=== PATIENT | female | born 1980 | race Caucasian/White ===

== ENCOUNTER → 2016-12-16 11:59 | Day surgery (SDC) | payer BC ==
[~2016-12-16 11:59] MED LIST: Atracurium* 10 MG/ML 10 ML VIAL ONE; Buffered Lidocaine 1% SYR 3ML* 3 ML/SYR SYRINGE INTRADERM ONE; Bupivacaine 0.25% EPI 200,000* 30 ML SDV ONE; Dexamethasone IV* 4 MG/ML 1 ML (4 MG) IV SLOW PU ONE; Dexamethasone IV* 4 MG/ML 1 ML (4 MG) ONE; DiMENhydriNATE IV* 50 MG/ML VIAL IV PUSH PRN; Famotidine IV* 10 MG/ML 2 ML (20 mg) IV ONE; Famotidine IV* 10 MG/ML 2 ML (20 mg) ONE; HYDROmorphone INJ* 1 MG/ML CARPUJECT SYRINGE IV PRN; Ketorolac INJ* 30 MG/ML 1 ML VIAL ONE; Lidocaine 2% PF * 5 ML VIAL ONE; Midazolam* 1 MG/ML 5 ML VIAL (5 MG) ONE; Ondansetron INJ* 2 MG/ML VIAL IV PRN; Ondansetron INJ* 2 MG/ML VIAL ONE; Propofol* 10 MG/ML 20 ML BTL IV PUSH ONE; Scopolamine 1.5 mg* PATCH TRANSDERM PRN; Scopolamine PATCH Remove* 1 NOTE MISC PATCH OFF ONE; ceFAZolin 2 GM PREMIX (*) 2 GM/50 ML BAG IVPB ONE; fentaNYL* 50 MCG/ML 2 ML VIAL (100 MCG VIAL) IV PRN; fentaNYL* 50 MCG/ML 5 ML VIAL (250 MCG VIAL) ONE; oxyCODONE/Acetamin 5/325 MG* TAB PO PRN
[2016-12-16 13:13] LABS: Manual Entry Verification HAN0055; UR Preg Internal Control QC Line Present
--- NOTE | 2016-12-16 15:59 | SURGPN ---
Brief Operative Note - Surgery Procedures: Pre-OP Diagnoses: chronic cholecystitis Post-op Diagnosis: same Procedure: Laparoscopic cholecystectomy Surgeon: Hailey Asst: Neela Anethesia: ZARINA Hernandez EBL: minimal IVF: 1600cc LR Specimen: gallbladder Drains: none
--- NOTE | 2016-12-16 16:16 | PN ---
Progress Note - Progress Note Note: Istop checked Reference #: [id number]
[2016-12-16 17:04] VITALS: BP 126/76
--- NOTE | 2016-12-17 13:07 | OP ---
DATE OF OPERATION: 12/16/16 - [facility] DATE OF : 84 SURGEON: Donis Hart MD LOSS PREVENTION OPERATIONS MANAGER: AMBROSIO Graf ANESTHESIOLOGIST: Dr. Nicola Hernandez. ANESTHESIA: General. PRE-OP DIAGNOSIS: Chronic cholecystitis. POST-OP DIAGNOSIS: Chronic cholecystitis. OPERATIVE PROCEDURE: Laparoscopic cholecystectomy. ESTIMATED BLOOD LOSS: Minimal. FLUIDS: 1600 cc of crystalloid fluid given. SPECIMEN: Gallbladder. DRAINS: None. COUNTS: Lap pad count and instrument count correct at the end of the procedure. DESCRIPTION OF PROCEDURE: The patient was identified in the preoperative area, marked, brought to the operating room, placed on the operating table in supine position. Preoperative antibiotics were given. Sequential devices were placed on bilateral lower extremities. General anesthesia was induced. The patient's abdomen was prepped and draped in the standard surgical fashion and a time-out was performed. The folds of the umbilicus were elevated anteriorly. A Veress needle was inserted into the abdominal cavity, which was then allowed to be insufflated to a pressure of 15 mmHg. The patient tolerated the insufflation well. An incision was made over this. A Veress needle and a 5 mm trocar was inserted into the abdominal cavity. Laparoscope was inserted through this after the Veress needle was removed, there was no evidence of injury from the trocar insertion. Additional trocars were then placed in the following position; a 12 mm in the subxiphoid area and two 5 mm along the right costal margin. The gallbladder was identified and showed no significant edema or adhesions. The fundus was identified, grasped, and elevated above the liver. The infundibulum was grasped and retracted towards the right lower quadrant, which exposed the critical view, where the common bile duct and cystic duct met. Peritoneal attachments were taken off the medial aspect of the gallbladder with a cautery and off the lateral aspect. The cystic duct and cystic artery were isolated. They were both doubly clipped and ligated and the gallbladder was removed from the liver bed. At one point, we did make a small hole in the gallbladder. We were able to grasp this and prevent any significant bile leak. No stones were leaked either. Gallbladder was then placed in an endoscopic retrieval bag and brought out through the subxiphoid port site and passed off as a specimen. Review of the abdomen showed no other injuries. The cystic duct stump and cystic artery stump were intact with no evidence of bleeding or bile leak. We did irrigate out the gallbladder fossa, suctioning off any spilled bile. We did this over the liver as well until the fluid was clear and suctioned off and allowed the abdomen to collapse. Trocars removed under direct vision. The umbilical incision site was reapproximated with 3-0 chromic in a simple fashion. In addition, the other 3 skin incisions were reapproximated with 4-0 Monocryl subcuticular sutures. Steri-Strips and sterile dressing were applied. The patient tolerated the procedure well, was woken up in the OR and transferred to the PACU in stable condition. CC: Dr. Av Pyle; [facility] * [id number]/[facility] #: [id number] BRANT
== END | disposition home or self-care (01) ==
LOC: OR 11:59
PROVIDERS: ATTEND Surgery
DX: K80.10 Calculus of gallbladder with chronic cholecystitis without obstruction (principal)
CPT/HCPCS: 81025; 88304; J0690; J1100; J1885; J2250; J2405; J2704; J3010

== ENCOUNTER 2016-12-20 11:36 | Observation (INO) | payer BC ==
[2016-12-20] MEDS ORDERED: Morphine INJ* 4 MG/ML 1 ML CARPUJECT IV ONE ×2 (13:00→13:47)
[2016-12-20] MEDS ORDERED: Ondansetron INJ* 2 MG/ML VIAL IV ONE (13:01)
[2016-12-20] MEDS ORDERED: NS 0.9% 1000 ML* 1,000 ML IV ONE (13:21)
[2016-12-20 13:27] LABS: Hematocrit 42 % (35-47); Hemoglobin 14.2 g/dl (12.0-16.0); Mean Corpuscular HGB Conc 34 g/dl (31-36); Mean Corpuscular Hemoglobin 31 pg (27-31); Mean Corpuscular Volume 93 fL (80-97); Mean Platelet Volume 9 um3 (7.4-10.4); Red Blood Count 4.53 10^6/ul (4.0-5.4); Red Cell Distribution Width 13 % (10.5-15); White Blood Count 5.9 10^3/ul (3.5-10.8)
[2016-12-20 13:38] LABS: Albumin 4.2 g/dL (3.2-5.2); C Reactive Protein 8.45 mg/L (< 5.00); Calcium 9.5 mg/dL (8.6-10.3); EGFR African American 181.6 (>60); EGFR Non-African American 141.2 (>60); Globulin 3.2 g/dL (2-4); Potassium 3.8 mmol/L (3.5-5.0); Total Bilirubin 6.1 mg/dL (0.2-1.0); Total Protein 7.4 g/dL (6.4-8.9)
--- NOTE | 2016-12-20 14:15 | RAD ---
HISTORY: Abdominal pain, status post cholecystectomy COMPARISONS: None VIEWS:1: Single frontal portable view of the chest at 1:30 PM FINDINGS: LINES AND TUBES: None. CARDIOMEDIASTINAL SILHOUETTE: The cardiomediastinal silhouette is normal for portable technique. PLEURA: The costophrenic angles are sharp. No pleural abnormalities are noted. LUNG PARENCHYMA: The lungs are clear. ABDOMEN: The upper abdomen is clear. There is no subphrenic gas. BONES AND SOFT TISSUES: No bone or soft tissue abnormalities are noted. IMPRESSION: NO ACTIVE CARDIOPULMONARY DISEASE.
[2016-12-20] MEDS ORDERED: Iohexol 350* (CONTRAST) 500 ML MDV IV ONE (14:21)
--- NOTE | 2016-12-20 15:27 | RAD ---
HISTORY: Shortness of breath, upper abdominal pain, status post cholecystectomy COMPARISONS: None TECHNIQUE: Multiple contiguous axial CT scans were obtained of the chest, abdomen, and pelvis after the administration of intravenous contrast. Coronal and sagittal multiplanar reformations are submitted for review.. Oral contrast was administered. Delayed images were obtained through the abdomen FINDINGS: CHEST NECK AND THYROID: The lower neck and thyroid are unremarkable. CHEST WALL: There is no lower cervical, axillary, or supraclavicular lymphadenopathy by size criteria. HEART AND PERICARDIUM: The heart is unremarkable. AORTA AND PULMONARY VASCULATURE: The aorta and pulmonary vasculature are normal. MEDIASTINUM: There is no mediastinal lymphadenopathy by size criteria. ABDI: There is no hilar lymphadenopathy by size criteria. AIRWAY AND ESOPHAGUS: The airway is unremarkable, without endobronchial filling defect. The esophagus is grossly normal. LUNG PARENCHYMA: There is subsegmental atelectasis of the lung bases bilaterally PLEURA: No pleural abnormalities are noted. BONES AND SOFT TISSUES: No bone or soft tissue abnormalities are noted. ABDOMEN/PELVIS: LIVER: The liver is normal in shape, size, contour, and attenuation. BILE DUCTS: There is no intrahepatic or extrahepatic biliary dilatation. GALLBLADDER: The gallbladder is not visualized. Surgical clips are noted in the gallbladder fossa. PANCREAS: The pancreas is normal, without mass or ductal dilatation. SPLEEN: Normal in size and appearance. UPPER GI TRACT: Evaluation of the gastrointestinal tract is limited by incomplete gastric distention. The upper GI tract is unremarkable. SMALL BOWEL \T\ MESENTERY: The small bowel is normal in contour, course, and caliber. There is no obstruction or dilatation. COLON: The colon is normal in contour, course, caliber. There is no pericolonic inflammatory change. ADRENALS: Normal bilaterally. KIDNEYS: The kidneys are normal in shape, size, contour, and axis. There is no hydronephrosis or nephrolithiasis. BLADDER: The bladder is smooth in contour. PELVIC ORGANS: The uterus and adnexa are grossly normal for technique. AORTA: The aorta is normal. IVC: Unremarkable LYMPH NODES: There is no lymphadenopathy by size criteria. ABDOMINAL WALL: There is small fat-containing of umbilical hernia. There is mild inflammatory change along the right flank in the subcutaneous soft tissue. BONES: Mild degenerative changes are noted OTHER: None IMPRESSION: 1. NO PULMONARY ARTERIAL FILLING DEFECT TO SUGGEST PULMONARY EMBOLUS. 2. STATUS POST CHOLECYSTECTOMY. 3. MILD INFLAMMATORY CHANGE OF THE RIGHT FLANK, LIKELY POSTSURGICAL IN NATURE. 4. SUBSEGMENTAL ATELECTASIS OF THE LUNG BASES BILATERALLY
[2016-12-20 16:25] LABS: Urine Bacteria 1+ (Absent); Urine Bilirubin Negative (Negative); Urine Glucose Negative (Negative); Urine Nitrite Negative (Negative)
[2016-12-20] MEDS ORDERED: Acetaminophen TAB* 325 MG PO PRN (16:54)
[2016-12-20] MEDS ORDERED: HYDROmorphone INJ* 1 MG/ML CARPUJECT SYRINGE IV ONE (16:59)
[2016-12-20] MEDS ORDERED: NS 0.9% 1000 ML* 1,000 ML IV SCH (17:00)
--- NOTE | 2016-12-20 17:28 | ED ---
Dean Tapia Janilya, scribed for Luis A Adan MD on 12/20/16 at 1347 . Shortness of Breath - HPI Summary HPI Summary: A 36 y/o female came in to [facility] presenting w/ a gradual onset of constant SOB starting after her gallbladder surgery on Friday, December 16, 2016. Pt states that she had a scheduled surgery with Dr. Hart to remove gallstones. She was stable enough to leave home the same day of her surgery. However, she started feeling SOB and nausea when standing up. It has progressively worsened, and now she has SOB at rest. In addition, pt states there is CP under rib cage, rating 9/10. It is worse with movement. There is also epigastric abd pain due to surgery. There is no drainage. Pt denies wheezing, coughing, fever, chills, pedal edema. She's been urinating normally, and she hasn't had bowel movement since surgery. Pt is on Percocet pain medication. No PMHx of asthma. - History of Current Complaint Chief Complaint: EDShortnessOfBreath Time Seen by Provider: 12/20/16 13:32 Hx Obtained From: Patient Onset/Duration: Gradual Onset, Lasting Days, Still Present Timing: Constant Current Severity: Moderate Dyspnea At: Rest Aggrevating Factors: Nothing Alleviating Factors: Nothing - Allergy/Home Medications Allergies/Adverse Reactions: Allergies Allergy/AdvReac Type Severity Reaction Status Date / Time Ketoconazole Allergy Severe rash and Verified 12/16/16 13:24 itchy PMH/Surg Hx/FS Hx/Imm Hx Musculoskeletal History: Reports: Hx Tendonitis - right hand Sensory History: Denies: Hx Contacts or Glasses, Hx Hearing Aid Opthamlomology History: Denies: Hx Contacts or Glasses - Cancer History Hx Chemotherapy: No - Surgical History Surgery Procedure, Year, and Place: sinus surgery 1999 approx Hx Anesthesia Reactions: No Infectious Disease History: No Infectious Disease History: Denies: Traveled Outside the [place] in Last 30 Days - Family History Known Family History: Positive: Cardiac Disease, Diabetes Negative: Hypertension - Social History Alcohol Use: Rare Substance Use Type: Reports: None Smoking Status (MU): Never Smoked Tobacco Review of Systems Negative: Fever, Chills Positive: Chest Pain - under rib cage Positive: Shortness Of Breath, Other - denies wheezing . Negative: Cough Positive: Abdominal Pain - epigastric abd pain due to recent surgery , Nausea Positive: other - no bowel movement since surgery, normal urination Negative: Edema Skin: Negative Neurological: Negative Psychological: Normal All Other Systems Reviewed And Are Negative: Yes Physical Exam Triage Information Reviewed: Yes Vital Signs On Initial Exam: Initial Vitals Temp Pulse Resp BP Pulse Ox 97.4 F 96 20 136/78 98 12/20/16 11:38 12/20/16 11:38 12/20/16 11:38 12/20/16 11:38 12/20/16 11:38 Vital Signs Reviewed: Yes Appearance: Positive: No Pain Distress, Ill-Appearing - mildly Skin: Positive: Warm, Skin Color Reflects Adequate Perfusion, Dry Head/Face: Positive: Normal Head/Face Inspection Eyes: Positive: EOMI, LISANDRA ENT: Positive: Normal ENT inspection Neck: Positive: Supple, Nontender Respiratory/Lung Sounds: Positive: Clear to Auscultation, Breath Sounds Present Cardiovascular: Positive: RRR Abdomen Description: Positive: Other: - Tender in upper abd. Negative: Nontender, Soft Bowel Sounds: Positive: Present, Hypoactive Musculoskeletal: Positive: Normal, Strength/ROM Intact Neurological: Positive: Normal, Sensory/Motor Intact, Alert, Oriented to Person Place, Time Psychiatric: Positive: Affect/Mood Appropriate Diagnostics - Vital Signs Vital Signs Temp Pulse Resp BP Pulse Ox 12/20/16 13:10 16 12/20/16 11:38 97.4 F 96 20 136/78 98 - Laboratory Lab Results: Lab Results 12/20/16 12/20/16 12/20/16 Range/Units 12:20 12:20 12:20 WBC 5.9 (3.5-10.8) 10^3/ul RBC 4.53 (4.0-5.4) 10^6/ul Hgb 14.2 (12.0-16.0) g/dl Hct 42 (35-47) % MCV 93 (80-97) fL MCH 31 (27-31) pg MCHC 34 (31-36) g/dl RDW 13 (10.5-15) % Plt Count 287 (150-450) 10^3/ul MPV 9 (7.4-10.4) um3 Neut % (Auto) 80.0 (38-83) % Lymph % (Auto) 11.5 L (25-47) % [place] % (Auto) 5.5 (1-9) % Eos % (Auto) 2.1 (0-6) % Baso % (Auto) 0.9 (0-2) % Absolute Neuts (auto) 4.8 (1.5-7.7) 10^3/ul Absolute Lymphs (auto) 0.7 L (1.0-4.8) 10^3/ul Absolute Monos (auto) 0.3 (0-0.8) 10^3/ul Absolute Eos (auto) 0.1 (0-0.6) 10^3/ul Absolute Basos (auto) 0.1 (0-0.2) 10^3/ul Absolute Nucleated RBC 0 10^3/ul Nucleated RBC % 0 INR (Anticoag Therapy) 1.19 H (0.89-1.11) APTT 27.5 (26.0-36.3) seconds Sodium 135 (133-145) mmol/L Potassium 3.8 (3.5-5.0) mmol/L Chloride 105 (101-111) mmol/L Carbon Dioxide 25 (22-32) mmol/L Anion Gap 5 (2-11) mmol/L BUN 7 (6-24) mg/dL Creatinine 0.50 L (0.51-0.95) mg/dL Est GFR ( Amer) 181.6 (>60) Est GFR (Non-Af Amer) 141.2 (>60) BUN/Creatinine Ratio 14.0 (8-20) Glucose 102 H (70-100) mg/dL Lactic Acid (0.5-2.0) mmol/L Calcium 9.5 (8.6-10.3) mg/dL Total Bilirubin 6.10 H (0.2-1.0) mg/dL AST Pending ALT Pending Alkaline Phosphatase 184 H (34-104) U/L C-Reactive Protein 8.45 H (< 5.00) mg/L Total Protein 7.4 (6.4-8.9) g/dL Albumin 4.2 (3.2-5.2) g/dL Globulin 3.2 (2-4) g/dL Albumin/Globulin Ratio 1.3 (1-3) Lipase Pending 12/20/16 Range/Units 12:20 WBC (3.5-10.8) 10^3/ul RBC (4.0-5.4) 10^6/ul Hgb (12.0-16.0) g/dl Hct (35-47) % MCV (80-97) fL MCH (27-31) pg MCHC (31-36) g/dl RDW (10.5-15) % Plt Count (150-450) 10^3/ul MPV (7.4-10.4) um3 Neut % (Auto) (38-83) % Lymph % (Auto) (25-47) % [place] % (Auto) (1-9) % Eos % (Auto) (0-6) % Baso % (Auto) (0-2) % Absolute Neuts (auto) (1.5-7.7) 10^3/ul Absolute Lymphs (auto) (1.0-4.8) 10^3/ul Absolute Monos (auto) (0-0.8) 10^3/ul Absolute Eos (auto) (0-0.6) 10^3/ul Absolute Basos (auto) (0-0.2) 10^3/ul Absolute Nucleated RBC 10^3/ul Nucleated RBC % INR (Anticoag Therapy) (0.89-1.11) APTT (26.0-36.3) seconds Sodium (133-145) mmol/L Potassium (3.5-5.0) mmol/L Chloride (101-111) mmol/L Carbon Dioxide (22-32) mmol/L Anion Gap (2-11) mmol/L BUN (6-24) mg/dL Creatinine (0.51-0.95) mg/dL Est GFR ( Amer) (>60) Est GFR (Non-Af Amer) (>60) BUN/Creatinine Ratio (8-20) Glucose (70-100) mg/dL Lactic Acid 1.3 (0.5-2.0) mmol/L Calcium (8.6-10.3) mg/dL Total Bilirubin (0.2-1.0) mg/dL AST ALT Alkaline Phosphatase (34-104) U/L C-Reactive Protein (< 5.00) mg/L Total Protein (6.4-8.9) g/dL Albumin (3.2-5.2) g/dL Globulin (2-4) g/dL Albumin/Globulin Ratio (1-3) Lipase Result Diagrams: 12/20/16 12:20 12/20/16 12:20 Lab Statement: Any lab studies that have been ordered have been reviewed, and results considered in the medical decision making process. - Radiology CXR Xray Interpretation: No Acute Changes - IMPRESSION: No active cardiopulmonary disease Radiology Interpretation Completed By: Radiologist - CT chest/abd/pel CT Interpretation: Positive (See Comments) - IMPRESSION: 1. NO PULMONARY ARTERIAL FILLING DEFECT TO SUGGEST PULMONARY EMBOLUS. 2. STATUS POST CHOLECYSTECTOMY. 3. MILD INFLAMMATORY CHANGE OF THE RIGHT FLANK, LIKELY POSTSURGICAL IN NATURE. 4. SUBSEGMENTAL ATELECTASIS OF THE LUNG BASES BILATERALLY CT Interpretation Completed By: Radiologist - EKG 1145 Cardiac Rate: NL - 79 bpm EKG Rhythm: Sinus Rhythm ST Segment: Normal Ectopy: None Course/Dx - Course Assessment/Plan: DISCUSSED RESULTS WITH PATIENT/FAMILY. DISCUSSED WITH DR PAGAN. ADMIT SURGERY STABLE. - Diagnoses Provider Diagnoses: Pancreatitis, Abdominal pain, Dyspnea - Physician Notifications Discussed Care of Patient With: Dr. Pagan (surgery) at 1651: discussed diagnosis of pancreatitis and hospital admission. Discharge - Discharge Plan Condition: Stable Disposition: ADMITTED TO [facility] Referrals: Av Pyle MD [Primary Care Provider] - The documentation as recorded by the Dean murcia Janilya accurately reflects the service I personally performed and the decisions made by me, Luis A Adan MD.
[2016-12-20] MEDS: Heparin VIAL(*) 5000 UNITS/ML VIAL (FIVE THOUSAND) SUBCUT SCH (21:44)
--- NOTE | 2016-12-21 00:18 | HP ---
HISTORY AND PHYSICAL ADMISSION: DATE OF ADMISSION: 12/20/16 The patient was admitted to the emergency room, but I saw her here on her short - stay surgical bed admission floor. REASON FOR ADMISSION: Nausea, abdominal pain, and slight shortness of breath. HISTORY OF PRESENT ILLNESS: Ms. Amrita Donis is a very pleasant 36-year-old woman, who underwent an elective laparoscopic cholecystectomies as an outpatient last Wednesday with Dr. Donis Hart. This was done for symptomatic cholelithiasis. An ultrasound preoperatively had showed gallstones without ductal dilation or acute chronic inflammation. Blood work preoperatively done at Dr. Pyle's office was also unremarkable. She tolerated the procedure well and was discharged to home that same day and required only several days of narcotic analgesia. She says over the last 24 to 48 hours, however, she has developed some nausea and epigastric discomfort, sometimes radiating into her back. In addition, she had some slight shortness of breath and especially at rest. She had no fever, shakes, or chills. She had noted no jaundice; however, she does state her urine was darker. She has not had a bowel movement in several days. She has had no lower abdominal discomfort. She was keeping some liquids down yesterday. She called the Answering Service today with the above complaints. She was instructed to proceed to the emergency room, especially in light of her complaints of postoperative shortness of breath. In the emergency room, she was noted to have a temperature of 99.8 with stable vital signs with a heart rate of 70. Laboratory workup included a normal white blood cell count; however , she was noted to have a total bilirubin of 6.1, but AST and ALT of 1042 and 1479 respectively. Lipase was 4093. Lactic acid 1.3. She underwent a CT scan of the chest, abdomen, and pelvis. This was done with both IV and oral contrast. Chest CT showed no pulmonary arterial filling defect to suggest pulmonary embolus. The abdominal component showed findings of a status post cholecystectomy, but no fluid collection, abscess, extraluminal air, or ductal dilation. She is being admitted to the surgical service for care of what appears to be a retained common bile duct stone with pancreatitis. PAST MEDICAL HISTORY: Unremarkable. PAST SURGICAL HISTORY: 1. Laparoscopic cholecystectomy. 2. Sinus surgery. MEDICATIONS: None. ALLERGIES: KETOCONAZOLE. SOCIAL HISTORY: She is . She lives with her . She has 1 child. She works in the [employer]. She drinks alcoholic beverages rarely. She has never been a smoker. She denies drug abuse. REVIEW OF SYSTEMS: The patient has had no dizziness, visual disturbances, or headaches. Pulmonary: She described some shortness of breath, but no hemoptysis, wheezing, and no history of asthma. She has no cardiovascular disease or chest pain. GI: As per above. : There is no urgency or hematuria. PHYSICAL EXAMINATION GENERAL: She is a well-developed, well-nourished female, who has been in no apparent distress. VITAL SIGNS: Temperature 98.1, pulse 70, blood pressure 114/70, pulse oximetry 100% saturated on room air. HEENT: Sclerae were slightly icteric. Trachea was midline. Oral mucosa was somewhat dry. LUNGS: Clear to auscultation with normal respiratory effort. HEART: Regular rate and rhythm without murmurs, rubs, or gallops. ABDOMEN: Soft and nondistended. She has well-healed 4 laparoscopic upper abdominal incisions. There are no signs of infection or redness. She has some mild tenderness in the epigastric and right upper quadrant on deeper palpation. There is no peritoneal sign, irritation, or rigidity. EXTREMITIES: Showed no cyanosis or edema. PSYCHIATRIC: She is awake, alert, and oriented x3. She has normal judgment and insight. IMPRESSION: 1. A 36-year-old woman status post elective laparoscopic cholecystectomy last week, returns with a markedly elevated total bilirubin as well as liver transaminases and an elevated lipase consistent with a pancreatitis, most likely due to a retained common bile duct stone. It is impossible to tell whether this stone has passed. She shows no signs of cholangitis, sepsis, or peritonitis. 2. Otherwise, a healthy female. PLAN: 1. The patient will be admitted to the surgical service and kept n.p.o. 2. She will be aggressively hydrated. 3. We will repeat laboratory values in the morning including liver transaminases, total bilirubin as well as lipase to follow with the trend. 4. An MRCP will be ordered for morning to evaluate the common bile duct. 5. Depending on the trend and the blood work as well as findings on MRCP, Gastroenterology consultation may be required and consideration of ERCP given. 6. I discussed all of the above findings with the patient and her here at the bedside tonight and reviewed the plan of care with them in detail and answered their questions. In addition, a diagram of the biliary tract was used to describe the concepts discussed above. 7. We will not start antibiotics at this time. CC: [facility]; Siddharth Kraft * [id number]/[facility] #: [id number] [facility]
[2016-12-21] MEDS: HYDROmorphone INJ* 1 MG/ML CARPUJECT SYRINGE IV PRN ×3 (00:46→21:41)
[2016-12-21] MEDS: Heparin VIAL(*) 5000 UNITS/ML VIAL (FIVE THOUSAND) SUBCUT SCH ×3 (06:05→21:38)
[2016-12-21 07:35] LABS: Hematocrit 34 % (35-47); Hemoglobin 11.8 g/dl (12.0-16.0); Mean Corpuscular HGB Conc 35 g/dl (31-36); Mean Corpuscular Hemoglobin 32 pg (27-31); Mean Corpuscular Volume 93 fL (80-97); Mean Platelet Volume 8 um3 (7.4-10.4); Red Blood Count 3.67 10^6/ul (4.0-5.4); Red Cell Distribution Width 13 % (10.5-15); White Blood Count 6.2 10^3/ul (3.5-10.8)
[2016-12-21 07:51] LABS: Albumin 3.1 g/dL (3.2-5.2); BUN/Creatinine Ratio 15.2 (8-20); Calcium 8.5 mg/dL (8.6-10.3); EGFR Non-African American 155.5 (>60); Globulin 2.5 g/dL (2-4); Potassium 3.7 mmol/L (3.5-5.0); Total Bilirubin 3.1 mg/dL (0.2-1.0); Total Protein 5.6 g/dL (6.4-8.9)
--- NOTE | 2016-12-21 08:55 | PN ---
Progress Note - Progress Note Note: Surgery Progress: (DOS 12/21) S: POD #5. Feels better this a.m. Pain level 2/10. Has not req'd any analgesic since 99. Slight nausea, but also feels hungry. Urine still dark. O: Vital Signs - 8 hr 12/21/16 12/21/16 12/21/16 01:46 04:11 07:57 Temperature 97.8 F 98.0 F Pulse Rate 76 66 Respiratory 16 16 18 Rate Blood Pressure 109/65 105/62 (mmHg) O2 Sat by Pulse 99 99 Oximetry 12/21/16 08:00 Temperature Pulse Rate Respiratory 18 Rate Blood Pressure (mmHg) O2 Sat by Pulse Oximetry Intake and Output Last 24 Hours 12/19/16 12/20/16 12/21/16 12/22/16 06:59 06:59 06:59 06:59 Intake Total 1904 Output Total 800 0 Balance 1104 0 Weight 172 lb Intake: IV Fluids 1904 Oral 0 Output: Urine 800 0 Gen: WN, obese female in NAD; appears comfortable Heart: reg Lungs: clear ant; decreased BS at bases Abd: lap incisions ok; soft; mildly "uncomfortable" in midepigastrium; remainder soft, nontender Labs: Laboratory Tests 12/21/16 12/21/16 07:28 07:28 WBC 6.2 Hgb 11.8 L Total Bilirubin 3.10 H D AST 268 H ALT 771 H Lipase 144 H A: retained CBD stone, likely passed w/ sig improvement in clinical picture, including labs P: discussed w/ Dr. Hart: will cx MRCP; allow sips clears; cont IVF; repeat labs in a.m.
[2016-12-21] MEDS: Ketorolac INJ* 30 MG/ML 1 ML VIAL IV PRN ×2 (09:28→21:58)
[2016-12-21] MEDS: Ondansetron INJ* 2 MG/ML VIAL IV PRN ×2 (14:51→21:43)
[2016-12-22] MEDS: Heparin VIAL(*) 5000 UNITS/ML VIAL (FIVE THOUSAND) SUBCUT SCH ×2 (05:29→14:28)
[2016-12-22] MEDS: Ketorolac INJ* 30 MG/ML 1 ML VIAL IV PRN (05:30)
[2016-12-22 07:08] LABS: Albumin 3.1 g/dL (3.2-5.2); Direct Bilirubin 0.5 mg/dL (0.03-0.18); Globulin 2.3 g/dL (2-4); Indirect Bilirubin 1.4 mg/dL (0.3-1.0); Total Bilirubin 1.9 mg/dL (0.2-1.0); Total Protein 5.4 g/dL (6.4-8.9)
--- NOTE | 2016-12-22 09:20 | PN ---
Progress Note - Progress Note SOAP: Subjective: pt seen and examined. Feeling a little better. Pos abdo pain; last narcotic last night. post R shoulder pain Objective: [af vss abdo: soft/ ND, tender at RUQ w/o rebound labs noted Assessment: 1 week s/p lap ivy with likely retained CBD stone that passed; resolving pancreatitis Plan: advance diet d/c planning. f/uin office next week
[2016-12-22] MEDS: HYDROmorphone INJ* 1 MG/ML CARPUJECT SYRINGE IV PRN (10:58)
[2016-12-22] MEDS: Ondansetron INJ* 2 MG/ML VIAL IV PRN (11:02)
[2016-12-22] MEDS ORDERED: oxyCODONE/Acetamin 5/325 MG* TAB PO PRN (14:49)
[2016-12-22 15:31] VITALS: BP 127/71
--- NOTE | 2016-12-23 02:12 | DS ---
DISCHARGE SUMMARY: DATE OF ADMISSION: 12/20/16 DATE OF ANTICIPATED DISCHARGE: 12/22/16 ATTENDING PHYSICIAN: Donis Hart MD (dictated by AMBROSIO Galloway) HOSPITAL COURSE: Please refer to admission history and physical from Dr. Pagan from 12/20/16 for admission details. Briefly, the patient is a 36- year-old woman who had undergone a laparoscopic cholecystectomy on 12/16/16. Initial postoperative course was as expected. She then developed increased epigastric abdominal pain, associated with nausea and dark urine as well as some shortness of breath. Workup was consistent with retained common bile duct stone with a peak bilirubin of 6.1 and lipase of 4093. The patient was significantly improved the next morning, both clinically and by lab parameters ( her bilirubin had come down to 3.1, amylase was down to 144) and there was similar improvement in her other liver function tests. Her white blood cell count had been normal on both draws. An MRCP that had been planned was cancelled. The patient was allowed sips of clear liquids. She only required narcotic once in the evening of 12/21/16. Her diet was advanced the morning of 12/22/16. After having some toast and eggs and having gotten up to move around more, she experienced more pain requiring parenteral analgesic. However, after her lunch tray, she was more conservative in her intake and this seem to be better tolerated. Her discharge plan was discussed with her in terms of instructions regarding diet and activity. She still has some of her Percocet at home from the surgery, which she may use p.r.n. She has a followup scheduled with Dr. Hart on 12/28/16. AMBROSIO DELUNA CC: Siddharth Kraft; Donis Hart MD * [id number]/[facility] #: [id number] MTDD
== END 2016-12-22 16:45 | disposition home or self-care (01) ==
LOC: ED 11:36 → SSU 16:55
PROVIDERS: ADMIT Surgery; ATTEND Surgery
DX: R10.13 Epigastric pain (principal); R06.02 Shortness of breath; R11.0 Nausea; E80.6 Other disorders of bilirubin metabolism; R74.0 Nonspecific elevation of levels of transaminase and lactic acid dehydrogenase [LDH]; Z88.8 Allergy status to other drugs, medicaments and biological substances
CPT/HCPCS: 36415; 71010; 71275; 74177; 80053; 80076; 81003; 81015; 83605; 83690; 84484; 85025; 85379; 85610; 85730; 86140; 87086; 93005; 96361; 96372; 96374; 96375; 96376; 99283; A9270-GY; G0378; J1170; J1644; J1885; J2270; J2405; Q9967

== ENCOUNTER 2017-07-10 11:18 | Emergency (ER) | payer BC ==
[2017-07-10 11:55] VITALS: BP 129/84
--- NOTE | 2017-07-10 12:11 | UC ---
Lower Extremity/Ankle HPI - HPI Summary HPI Summary: 36 year old female with previous history of ankle fracture in 2004 presents with left ankle and foot pain. Persistent and worsening over the last few weeks. LMP currently. No weakness in the foot or recent trauma she can think of but otherwise feels similar to how it felt when she had fracture in '05 - History of Current Complaint Chief Complaint: UCLowerExtremity Stated Complaint: RIGHT ANKLE COMPLAINT Time Seen by Provider: 07/10/17 11:57 Hx Obtained From: Patient Hx Last Menstrual Period: now ?: No Onset/Duration: Gradual Onset Severity Initially: Mild Severity Currently: Moderate Aggravating Factor(s): Standing Alleviating Factor(s): Rest Able to Bear Weight: Yes - Allergies/Home Medications Allergies/Adverse Reactions: Allergies Allergy/AdvReac Type Severity Reaction Status Date / Time Ketoconazole Allergy Severe rash and Verified 07/10/17 11:55 itchy Home Medications: Home Medications NK [No Home Medications Reported] 07/10/17 [History Confirmed 07/10/17] PMH/Surg Hx/FS Hx/Imm Hx Previously Healthy: Yes - Surgical History Surgical History: Yes Surgery Procedure, Year, and Place: sinus surgery 1999 approx. - Dec 2016 at [facility] [place] - Family History Known Family History: Positive: Cardiac Disease, Diabetes Negative: Hypertension - Social History Lives: With Family Alcohol Use: Occasionally Alcohol Amount: 1 glass of wine per week Substance Use Type: None Smoking Status (MU): Never Smoked Tobacco - Immunization History Most Recent Influenza Vaccination: unknown Most Recent Tetanus Shot: Summer 2015 Most Recent Pneumonia Vaccination: never Review of Systems Musculoskeletal: Arthralgia All Other Systems Reviewed And Are Negative: Yes Physical Exam Triage Information Reviewed: Yes Appearance: Well-Appearing, No Pain Distress, Well-Nourished Vital Signs: Initial Vital Signs Temp 98 F 07/10/17 11:49 Pulse 79 07/10/17 11:49 Resp 18 07/10/17 11:49 BP 129/84 07/10/17 11:49 Vital Signs Reviewed: Yes Eye Exam: Normal Respiratory Exam: Normal Cardiovascular Exam: Normal Musculoskeletal Exam: Normal Musculoskeletal: Positive: Strength Intact, ROM Intact, No Edema, Other: - tenderness to palpation of left lateral malleolus. minimal tenderness to palpation of the arch of the foot. otherwise skin warm intact , cap refill < 3 sec, pulses intact. FROM of the toes and ankle. Strength and sensation intact. Neurological Exam: Normal Psychological Exam: Normal Skin Exam: Normal Lower Extremity Course/Dx - Course Course Of Treatment: no fx - Differential Dx/Diagnosis Differential Diagnosis/HQI/PQRI: Contusion, Fracture (Closed), Sprain, Strain, Tendonitis Provider Diagnoses: Right ankle pain / tendonitis Discharge - Discharge Plan Condition: Good Disposition: HOME Patient Education Materials: Plantar Fasciitis (ED), Plantar Fasciitis Exercises (ED) Referrals: Av Pyle MD [Primary Care Provider] - 3 Days
--- NOTE | 2017-07-10 13:27 | RAD ---
INDICATION: Left ankle pain COMPARISON: None. TECHNIQUE: 3 views of the left ankle were obtained. FINDINGS: The well corticated bones exhibit normal alignment. Joint spaces appear maintained. No fracture is seen. IMPRESSION: Normal ankle radiograph. If the patient's symptoms persist, follow-up imaging is recommended.
== END 2017-07-10 12:53 | disposition home or self-care (01) ==
LOC: UCCORT 11:18
DX: M25.572 Pain in left ankle and joints of left foot (principal); M77.9 Enthesopathy, unspecified; Z87.81 Personal history of (healed) traumatic fracture; Z88.8 Allergy status to other drugs, medicaments and biological substances
CPT/HCPCS: 99211; G0463

== ENCOUNTER 2017-11-16 18:45 | Emergency (ER) | payer BC ==
--- OUTSIDE RECORDS SUMMARY | 2017-11-16 18:53 | XMS REPORT ---
:1980 External Reference #:[id number] Author Organization [facility] Address [address] [address] Phone [phone] Care Team Providers Name Role Phone Av Pyle MD Primary Care Physician Unavailable Payers Type Date Identification Numbers Payment Provider Subscriber Commercial Policy Number: [id number] [employer] Amrita Whaley PayID: [id number] [address] [address] [place] [address] Problems Date Description Provider Status Onset: 10/15/2017 Ganglion/synovial cyst - ankle/foot Jose Luis Brumfield MD Active Social History Type Date Description Comments Marital Status Lives With Family ETOH Use Drinks Alcoholic Beverages Rarely Smoking Patient has never smoked Recreational Drug Use Denies Drug Use Exercise Type/Frequency Does not exercise Allergies, Adverse Reactions, Alerts Date Description Reaction Status Severity Comments 12/04/2016 Ketoconazole active Medications Medication Date Status Form Strength Qnty SIG Indications Ordering Provider Ibuprofen 00 Active Tablets 200mg by mouth Unknown 00 every 4 to 6 hours as needed Meloxicam 00 Active Tablets 15mg 1 by mouth Unknown 00 every day No Active 12/04/19 Hx Unknown Medications 17 - 12/28/19 17 Medications Administered in Office Medication Date Status Form Strength Qnty SIG Indications Ordering Provider Triamcinolone Injection Jose Luis (Kenalog) 2016 MD Octaviano Vital Signs Date Vital Result Comment 11/02/2017 Height 61 inches 5'1" Weight 167.00 lb BP Systolic 110 mmHg BP Diastolic 78 mmHg Respiratory Rate 16 /min Body Temperature 98.3 F Pain Level 4 BMI (Body Mass Index) 31.6 kg/m2 10/15/2017 Height 61 inches 5'1" Weight 167.00 lb BP Systolic 116 mmHg BP Diastolic 70 mmHg Body Temperature 97.9 F Pain Level 5 BMI (Body Mass Index) 31.6 kg/m2 09/17/2017 Height 61 inches 5'1" Weight 167.00 lb Heart Rate 64 /min Respiratory Rate 14 /min Body Temperature 98.6 F Pain Level 4 BMI (Body Mass Index) 31.6 kg/m2 01/21/2017 Heart Rate 66 /min BP Systolic 104 mmHg BP Diastolic 68 mmHg Respiratory Rate 16 /min Body Temperature 97.7 F 01/13/2017 Heart Rate 78 /min BP Systolic 106 mmHg BP Diastolic 78 mmHg Respiratory Rate 16 /min Body Temperature 98.2 F 01/07/2017 Height 61 inches 5'1" Weight 160.00 lb Heart Rate 68 /min BP Systolic 122 mmHg BP Diastolic 70 mmHg Respiratory Rate 16 /min Body Temperature 97.6 F BMI (Body Mass Index) 30.2 kg/m2 12/28/2016 Height 61 inches 5'1" Weight 160.00 lb Heart Rate 80 /min BP Systolic 118 mmHg BP Diastolic 72 mmHg Respiratory Rate 16 /min Body Temperature 98.2 F BMI (Body Mass Index) 30.2 kg/m2 12/10/2016 Height 61 inches 5'1" Weight 172.00 lb Heart Rate 72 /min BP Systolic 122 mmHg BP Diastolic 82 mmHg Respiratory Rate 16 /min Body Temperature 97.2 F BMI (Body Mass Index) 32.5 kg/m2 Results Test Date Test Result H/L Range Note Comp Metabolic Panel 01/13/2017 Sodium 136 mmol/L 133-145 Potassium 4.7 mmol/L 3.5-5.0 Chloride 106 mmol/L 101-111 Co2 Carbon Dioxide 24 mmol/L 22-32 Anion Gap 6 mmol/L 2-11 Glucose 87 mg/dL 70-100 Blood Urea Nitrogen 7 mg/dL 6-24 Creatinine 0.69 mg/dL 0.51-0.95 BUN/Creatinine Ratio 10.1 8-20 Calcium 9.9 mg/dL 8.6-10.3 Total Protein 7.0 g/dL 6.4-8.9 Albumin 4.4 g/dL 3.2-5.2 Globulin 2.6 g/dL 2-4 Albumin/Globulin Ratio 1.7 1-3 Total Bilirubin 1.40 mg/dL High 0.2-1.0 Alkaline Phosphatase 45 U/L 34-104 Alt 19 U/L 7-52 Ast 17 U/L 13-39 Egfr Non- 97.4 >60 Egfr 125.3 >60 1 CBC Auto Diff 01/13/2017 White Blood Count 6.2 10^3/uL 3.5-10.8 Red Blood Count 4.36 10^6/uL 4.0-5.4 Hemoglobin 14.0 g/dL 12.0-16.0 Hematocrit 40 % 35-47 Mean Corpuscular Volume 92 fL 80-97 Mean Corpuscular Hemoglobin 32 pg High 27-31 Mean Corpuscular HGB Conc 35 g/dL 31-36 Red Cell Distribution Width 13 % 10.5-15 Platelet Count 290 10^3/uL 150-450 Mean Platelet Volume 9 um3 7.4-10.4 Abs Neutrophils 2.9 10^3/uL 1.5-7.7 Abs Lymphocytes 2.7 10^3/uL 1.0-4.8 Abs Monocytes 0.3 10^3/uL 0-0.8 Abs Eosinophils 0.1 10^3/uL 0-0.6 Abs Basophils 0.1 10^3/uL 0-0.2 Abs Nucleated RBC 0.01 10^3/uL Granulocyte % 46.4 % 38-83 Lymphocyte % 43.9 % 25-47 Monocyte % 5.5 % 1-9 Eosinophil % 2.1 % 0-6 Basophil % 2.1 % High 0-2 Nucleated Red Blood Cells % 0.2 Laboratory test finding 01/13/2017 Lipase 22 U/L 11.0-82.0 Liver Function Panel 01/13/2017 Direct Bilirubin 0.30 mg/dL High 0.03- 0.18 Indirect Bilirubin 1.1 mg/dL High 0.3-1.0 Laboratory test 12/16/2016 Surgical Pathology SEE RESULT BELOW 2 finding Laboratory test 12/16/2016 (HCG) Urine Negative Negative 3 finding 1 Because ethnic data is not always readily available, this report includes an eGFR for both -Americans and non- Americans. The National Kidney Disease Education Program (NKDEP) does not endorse the use of the MDRD equation for patients that are not between the ages of 18 and 70, are , have extremes of body size, muscle mass, or nutritional status, or are non- or non-. According to the National Kidney Foundation, irrespective of diagnosis, the stage of the disease is based on the level of kidney function: Stage Description GFR(mL/min/1.73 m(2)) 1 Kidney damage with normal or decreased GFR 90 2 Kidney damage with mild decrease in GFR 60-89 3 Moderate decrease in GFR 30-59 4 Severe decrease in GFR 15-29 5 Kidney failure <15 (or dialysis) 2 SEE RESULT BELOW Name: AMRITA WHALEY : [address]: Donis Hart MD Acct: [id number] Unit: [id number] AGE: 36 Location: OR Re12/16/16 SEX: F Status: [facility] [place] SPEC: [id number] SIENNA: 12/16/16- [facility] DR: Donis Hart MD REQ: [id number] RECD: 12/16/16 STATUS: SOUT _ ORDERED: LEVEL III FINAL DIAGNOSIS Gallbladder, cholecystectomy: -- Chronic cholecystitis. -- Cholelithiasis. -- Cholesterolosis. PRE-OPERATIVE DIAGNOSIS Symptomatic cholelithiasis GROSS DESCRIPTION The specimen is received in formalin labeled, Gallbladder and Contents, and consists of a 10.4 x 3.5 x 3.3 cm intact gallbladder. The serosa is glistening smooth hirsch- green. Within the lumen, there are multiple hirsch slightly bosselated choleliths ranging from 0.2 cm to 0.4 cm in greatest dimension admixed with abundant green viscid bile. The mucosa is reticulated green with diffuse yellow stippling and the wall thickness averages 0.1 cm. Receiving Team Member sections, one cassette. Signed (signature on file) Ayana Banda MD 1529 END OF REPORT * ML=Testing performed at Main Lab DEPARTMENT OF PATHOLOGY, [address] [place] [address] Vishnu Hawkins M.D. Director [facility] # [id number] 3 If is still suspected, please repeat test after 48 to 72 hours. This test detects intact HCG only and is indicated for the early detection of . Procedures Date CPT Code Description Status 10/15/2017 53555 Inject/Drain Joint/Bursa Intermediate Completed 12/16/2016 48600 Laparoscopy Cholecystectomy Completed 12/16/2016 99078 Laparoscopy Cholecystectomy Completed Encounters Type Date Location Provider CPT E/M Dx Office Visit 10/15/2017 [facility] [place] [address] M65.872 3:30p [facility] M67.472 Office Visit 09/17/2017 3:00p [facility] [place] [address] M65.872 Of [facility] Office Visit 12/10/2016 3:00p [facility] [place] [address] K80.12 Of [facility] Plan of Care 10/15/2017 - Jose Luis Brumfield [id number] Other synovitis and tenosynovitis, left ankle and footFollow up:Follow Up: 4 [id number] Ganglion, left ankle and foot
[2017-11-16 19:31] VITALS: BP 115/73
[2017-11-16] MEDS ORDERED: Ibuprofen TAB* 600 MG PO ONE (20:51)
[2017-11-16] MEDS ORDERED: Lidocaine 2% VISCOUS* 15 ML UDC PO ONE ×2 (20:55→21:15)
--- NOTE | 2017-11-16 21:17 | UC ---
Trevor Tapia Stephanie, scribed for Charissa Sheth MD on 11/16/17 at 2053 . FLU HPI - HPI Summary HPI Summary: The pt is a 37 y/o F presenting to with fever that began yesterday at . Symptoms include chills, body aches, sore throat and exudate on throat. The pt reports decreased oral intake over the last week due to nausea and throat pain with consumption. The pt denies a rash. The pt reports taking Dayquil and Nyquil yesterday and today. + sick contact. No cp, sob. no abd pain no n/v - History of Current Complaint Chief Complaint: UCRespiratory Stated Complaint: SORE THROAT Time Seen by Provider: 11/16/17 20:21 Hx Obtained From: Patient Hx Last Menstrual Period: 11/09/17 ?: No Onset/Duration: Lasting Days - 1, Still Present Severity Currently: Moderate Pain Intensity: 8 Pain Scale Used: 0-10 Numeric Associated Signs & Symptoms: Positive: Fever, Sore Throat - Allergy/Home Medications Allergies/Adverse Reactions: Allergies Allergy/AdvReac Type Severity Reaction Status Date / Time Ketoconazole Allergy Severe rash and Verified 11/11/17 15:20 itchy Home Medications: Home Medications Dextromethorphan-Phenylephrine [Day Time Multi-Symptom Co 10-5-325 mg] [History] PMH/Surg Hx/FS Hx/Imm Hx Previously Healthy: Yes - Pt denies any family history when asked. - Surgical History Surgical History: Yes Surgery Procedure, Year, and Place: sinus surgery 1999 approx. - Dec 2016 at [facility] [place] - Family History Known Family History: Positive: Cardiac Disease, Hypertension Negative: Diabetes - Social History Occupation: Employed Full-time Lives: With Family Alcohol Use: Occasionally Alcohol Amount: 1 glass of wine per week Substance Use Type: None Smoking Status (MU): Never Smoked Tobacco - Immunization History Most Recent Influenza Vaccination: unknown Most Recent Tetanus Shot: Summer 2015 Most Recent Pneumonia Vaccination: never Review of Systems Constitutional: Fever ENT: Sore Throat - with exudate, Sinus Congestion All Other Systems Reviewed And Are Negative: Yes Physical Exam Triage Information Reviewed: Yes Appearance: Well-Appearing, No Pain Distress, Well-Nourished Vital Signs: Initial Vital Signs Temp 100.4 F 11/16/17 19:25 Pulse 109 11/16/17 19:25 Resp 18 11/16/17 19:25 BP 115/73 11/16/17 19:25 Pulse Ox 99 11/16/17 19:25 Vital Signs Reviewed: Yes Eye Exam: Normal Eyes: Positive: Conjunctiva Clear ENT Exam: Normal ENT: Positive: Normal ENT inspection, Hearing grossly normal, Pharyngeal erythema, Nasal congestion, TMs normal, Tonsillar exudate, Uvula midline Dental: Positive: Cervical Lymphadenopathy - submand R>L Neck exam: Normal Neck: Positive: Supple, Nontender, No Lymphadenopathy Respiratory Exam: Normal Respiratory: Positive: Chest non-tender, Lungs clear, Normal breath sounds Cardiovascular Exam: Normal Cardiovascular: Positive: RRR, No Murmur Abdominal Exam: Normal Abdomen Description: Positive: Nontender, No Organomegaly, Soft Bowel Sounds: Positive: Present Musculoskeletal Exam: Normal Musculoskeletal: Positive: Strength Intact Neurological Exam: Normal Neurological: Positive: Alert Psychological Exam: Normal Psychological: Positive: Normal Response To Family Skin Exam: Normal Re-Evaluation - Re-Evaluation First Eval Comment: pt did not like lidocaine - will not rx. + strep - abx Flu Course/Dx - Course Course Of Treatment: Pt presents with progressive sore throat and painful swallowing. Pt with erythema, exudate. uvula midline - no concern for abscess on exam. Will try lidocaine. rapid strep. if + abx. hydrate. motrin/apap - Differential Dx/Diagnosis Provider Diagnoses: strep pharyngitis Discharge - Discharge Plan Condition: Stable Disposition: HOME Prescriptions: Amoxicillin/Clavulanate TAB* [Augmentin TAB 875*] 875 mg PO BID #19 tab Patient Education Materials: Strep Throat (ED) Forms: *Gen. Provider Communication, *Work Release Referrals: Av Pyle MD [Primary Care Provider] - Additional Instructions: - Okay to alternate ibuprofen (Advil, Motrin) and Tylenol every 3 hours for pain. Take with food. Do NOT take for more than 4-5 days - Okay to gargle and spit every 4 hours as needed for pain - Stay well hydrated - frequent sips of cold fluids will be soothing to your throat (popsicles, jello, ice cream, ice water). Avoid excess caffeine until your symptoms have resolved. - Do not share eating, drinking utensils. Throw out your toothbrush when your symptoms resolved -Throat infections are spread by oral secretions - do not share eating or drinking utensils until you symptoms are resolved. Clean items that may get your secretions such as cell phones, ipads, computer mouse, television remotes. Once you have been on antibiotics for 48 hours, change your pillowcase and your toothrbrush. - Your throat sample has been sent for additional testing. These results will take 1-2 days to come back. If you need antibiotics, we will contact you. You may contact us for your test results on Wednesday ([phone]) - Contact your doctor to arrange a follow-up appointment as needed The documentation as recorded by the Trevor murcia Stephanie accurately reflects the service I personally performed and the decisions made by me, Charissa Sheth MD.
[2017-11-16] MEDS ORDERED: Amoxicillin/Clavulanate TAB* 875 MG PO ONE (21:33)
== END 2017-11-16 21:57 | disposition home or self-care (01) ==
LOC: UCEAST 18:45
DX: J02.0 Streptococcal pharyngitis (principal); Z88.3 Allergy status to other anti-infective agents
CPT/HCPCS: 87502; 87651; 99212; A9270-GY; G0463

== ENCOUNTER 2017-12-02 07:41 | Day surgery (SDC) | payer BC ==
[~2017-12-02 07:41] MED LIST changes: +Acetaminophen TAB* 325 MG PO ONE; -Atracurium* 10 MG/ML 10 ML VIAL ONE; +Buffered Lidocaine 0.9% SYRIN* 5 ML/SYR SYRINGE INTRADERM ONE; -Buffered Lidocaine 1% SYR 3ML* 3 ML/SYR SYRINGE INTRADERM ONE; -Bupivacaine 0.25% EPI 200,000* 30 ML SDV ONE; -Dexamethasone IV* 4 MG/ML 1 ML (4 MG) ONE; -DiMENhydriNATE IV* 50 MG/ML VIAL IV PUSH PRN; -Famotidine IV* 10 MG/ML 2 ML (20 mg) ONE; -HYDROmorphone INJ* 1 MG/ML CARPUJECT SYRINGE IV PRN; -Ketorolac INJ* 30 MG/ML 1 ML VIAL ONE; -Lidocaine 2% PF * 5 ML VIAL ONE; -Midazolam* 1 MG/ML 5 ML VIAL (5 MG) ONE; -Ondansetron INJ* 2 MG/ML VIAL IV PRN; -Ondansetron INJ* 2 MG/ML VIAL ONE; -Propofol* 10 MG/ML 20 ML BTL IV PUSH ONE; -Scopolamine 1.5 mg* PATCH TRANSDERM PRN; -Scopolamine PATCH Remove* 1 NOTE MISC PATCH OFF ONE; -ceFAZolin 2 GM PREMIX (*) 2 GM/50 ML BAG IVPB ONE; -fentaNYL* 50 MCG/ML 2 ML VIAL (100 MCG VIAL) IV PRN; -fentaNYL* 50 MCG/ML 5 ML VIAL (250 MCG VIAL) ONE; -oxyCODONE/Acetamin 5/325 MG* TAB PO PRN
[2017-12-02] MEDS ORDERED: Buffered Lidocaine 0.9% SYRIN* 5 ML/SYR SYRINGE ONE (07:45)
[2017-12-02] MEDS ORDERED: Famotidine IV* 10 MG/ML 2 ML (20 mg) ONE (07:45)
[2017-12-02] MEDS ORDERED: Dexamethasone IV* 4 MG/ML 1 ML (4 MG) ONE (07:45)
[2017-12-02] MEDS ORDERED: ceFAZolin 2 GM PREMIX (*) 2 GM/50 ML BAG IVPB ONE (07:48)
[2017-12-02] MEDS ORDERED: ceFAZolin 2 GM in NS 0.9% 100 ml IVPB ONE (08:00)
[2017-12-02] MEDS ORDERED: fentaNYL* 50 MCG/ML 5 ML VIAL (250 MCG VIAL) ONE (09:16)
[2017-12-02] MEDS ORDERED: Atracurium* 10 MG/ML 10 ML VIAL ONE (09:16)
[2017-12-02] MEDS ORDERED: Midazolam* 1 MG/ML 10 ML VIAL (10 MG) ONE (09:16)
[2017-12-02] MEDS ORDERED: Ketorolac INJ* 30 MG/ML 1 ML VIAL ONE (09:18)
[2017-12-02] MEDS ORDERED: Ondansetron INJ* 2 MG/ML VIAL ONE (09:18)
[2017-12-02] MEDS ORDERED: Propofol* 10 MG/ML 20 ML BTL IV PUSH ONE (09:18)
[2017-12-02] MEDS ORDERED: Lidocaine 2% PF * 5 ML VIAL ONE (09:19)
[2017-12-02] MEDS ORDERED: Bupivacaine 0.25% SDV* 30 ML ONE (10:20)
[2017-12-02] MEDS ORDERED: Naloxone* 0.4 MG/ML 1 ML VIAL IV PRN (10:36)
[2017-12-02] MEDS ORDERED: HYDROmorphone INJ* 1 MG/ML CARPUJECT SYRINGE IV PRN (10:36)
[2017-12-02] MEDS ORDERED: Ondansetron INJ* 2 MG/ML VIAL IV PRN (10:36)
[2017-12-02] MEDS ORDERED: DiMENhydriNATE IV* 50 MG/ML VIAL IV PUSH PRN (10:36)
[2017-12-02] MEDS ORDERED: Scopolamine 1.5 mg* PATCH TRANSDERM PRN (10:36)
[2017-12-02] MEDS ORDERED: oxyCODONE/Acetamin 5/325 MG* TAB PO PRN (10:36)
[2017-12-02] MEDS ORDERED: fentaNYL* 50 MCG/ML 2 ML VIAL (100 MCG VIAL) IV PRN (10:36)
[2017-12-02 12:31] VITALS: BP 107/83
--- NOTE | 2017-12-02 23:14 | OP ---
DATE OF OPERATION: 12/02/17 - SDS DATE OF : [birth year] SURGEON: Jose Luis Brumfield MD ADMINISTRATIVE SECRETARY: AMBROSIO Mckinnon. Asha's assistance was necessary for positioning, help with instrumentation and closure. ANESTHESIOLOGIST: Nicola Hernandez MD ANESTHESIA: General endotracheal anesthesia with local anesthesia provided by the surgeon. PRE-OP DIAGNOSES: 1. 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 3. Left posterior ankle and subtalar joint synovitis. 4. Tenosynovitis of the flexor hallucis longus tendon. POST-OP DIAGNOSES: 1. 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 3. Left posterior ankle and subtalar joint synovitis. 4. Tenosynovitis of the flexor hallucis longus tendon. OPERATIVE PROCEDURE: 1. Subtalar joint arthroscopy with extensive debridement and synovectomy. 2. Posterior ankle joint arthroscopy with extensive debridement and synovectomy. 3. Tenolysis of the flexor hallucis longus tendon. IMPLANTS: None. TOURNIQUET TIME: Less than 1 hour with a well-padded calf tourniquet at 225 mmHg. SPECIMENS: None. ESTIMATED BLOOD LOSS: Minimal. COMPLICATIONS: None. STATUS: Stable from the operating room to the recovery room and then home. INDICATIONS FOR PROCEDURE: Amrita is a 37-year-old woman who has had prolonged left hindfoot and posterior ankle pain refractory to extensive nonsurgical and conservative measures. This has included rest, immobilization, anti- inflammatories, physical therapy and injections. An MRI did reveal synovitis of the subtalar and posterior ankle. Both operative and nonoperative treatment alternatives were reviewed at length. Further, the nature and risks of surgery were reviewed in careful detail in the office as well as in the preoperative holding area. Our discussions regarding the risks of surgery included but were not limited to infection, recurrence, persistent pain, wound problems, nerve injury, neuroma, RSD, failure of the surgery and even the remote chance of a catastrophic complication including the loss of limb. DESCRIPTION OF PROCEDURE: Amrita was seen in the preoperative holding unit and an informed written consent was obtained. The appropriate extremity was marked. The patient was then brought to the operating room and carefully positioned on the operating room table. Anesthesia was induced. All bony prominences were padded with great care. A chlorhexidine based pre-scrub was performed followed by a standard ChloraPrep prep and drape. Surgical safety pause was then conducted in which we confirmed the appropriate patient, extremity, planned procedure, availability of equipment, indication and administration of prophylactic antibiotics, and DVT prophylaxis in the form of compression boot on the nonsurgical extremity. We began with the placement of a well-padded calf tourniquet 3 fingerbreadths beneath the fibular neck. An Esmarch exsanguination was then performed and the tourniquet was inflated to 225 mmHg. I started with a subtalar arthroscopy. I made the standard central subtalar arthroscopy portal with an 11 blade and blunt dissection down to the sinus tarsi. I then made the anterior lateral portal in the same manner. The shaver and biter were then utilized to perform an extensive debridement and synovectomy in the sinus tarsi as well as in the posterior facet and medial facet of the subtalar joint. There was an extensive amount of inflammation in this area and this was all debrided. The cartilage itself in the joints looked good. After all of the synovitis and inflamed tissue was removed, attention was then turned to the posterior ankle. Standard posterolateral and posteromedial ankle arthroscopy portal incisions were made with an 11 blade and blunt dissection down to the level of the joint capsule. I was careful just to incise the skin with the scalpel in the area of the sternal nerve. Biter and shaver was used to enter the posterior ankle and posterior subtalar joints. There was an extensive amount of synovitis and inflammatory tissue, which was removed with a biter as well as use of the full radius shaver. This carried along laterally to the lateral gutter of the ankle , which was all debrided. There was also a large amount of inflammatory tissue surrounding the flexor hallucis longus tendon. This was debrided being careful not to enter into the neurovascular structures medial to the tendon. After this debridement, the tendon had much improved excursion and increased magnitude from what was present before the debridement. Again, the cartilage in the posterior aspect of the ankle joint as well as in the posterior aspect of the subtalar joint was in good condition, so no cartilage work was done. At this point, wounds were irrigated and closed with nylon sutures and a dry sterile dressing was placed. There were no complications and all needle and sponge counts were correct at the end of the case. ATTESTATION: I attest that I was present, scrubbed and performed the entire procedure myself. POSTOPERATIVE PLAN: Amrita will be nonweightbearing and I will see her back in 2 weeks for likely suture removal and placement of Steri-Strips and progression of her activities. [id number]/[facility] #: [id number] MTDD
[2017-12-05] MEDS ORDERED: Scopolamine PATCH Remove* 1 NOTE MISC PATCH OFF ONE (10:38)
== END 2017-12-02 12:52 | disposition home or self-care (01) ==
LOC: OR 07:41
PROVIDERS: ATTEND Orthopaedic Surgery
DX: M65.872 Other synovitis and tenosynovitis, left ankle and foot (principal); M25.572 Pain in left ankle and joints of left foot; M79.672 Pain in left foot
CPT/HCPCS: 76000; 81025; J0690; J1100; J1885; J2250; J2405; J2704; J3010